=== PATIENT | male | born 1990 | race Asian ===

== ENCOUNTER 2017-03-06 10:19 | Emergency (ER) | payer BC ==
[~2017-03-06] VITALS: Ht 167.6 cm; Wt 59.1 kg
[2017-03-06] MEDS ORDERED: KETOROLAC TROMETHAMINE 60 MG/2 ML VIAL IM ONE (10:45)
[2017-03-06] MEDS ORDERED: PENICILLIN V POTASSIUM 500 MG TABLET PO ONE (10:45)
[2017-03-06 11:33] VITALS: BP 121/70
== END 2017-03-06 11:35 | disposition home or self-care (01) ==
LOC: EMS 10:22
DX: K05.219 Aggressive periodontitis, localized, unspecified severity (principal); J45.909 Unspecified asthma, uncomplicated; F17.210 Nicotine dependence, cigarettes, uncomplicated
CPT/HCPCS: 90471; 99283; J1885